=== PATIENT | male | born 1980 | race Caucasian/White ===

== ENCOUNTER 2018-07-15 11:34 | Inpatient (IN) | payer OTHER ==
[2018-07-15 11:59] VITALS: BMI 22.7
--- NOTE | 2018-07-15 14:04 | HP ---
COWS - Scale Resting Pulse: 0= [place] 80 or Below Sweatin= Chills/Flushing Restless Observation: 3= Extraneous Movement Pupil Size: 1= Pupils >than Normal Bone or Joint Aches: 2= Severe Diffuse Aches Runny Nose/ Eye Tearin= Runny Nose/Eyes GI Upset > 30mins: 3= Vomiting/Diarrhea Tremor Observation: 2= Slight Tremor Visible Yawning Observation: 2= >3x During Session Anxiety or Irritability: 2=Irritable/Anxious Goose Flesh Skin: 0=Smooth Skin COWS Score: 18 CIWA Score - Admission Criteria OASAS Guidelines: Admission for Medically Managed Detox: Requires at least one of the followin. CIWA greater than 12 2. Seizures within the past 24 hours 3. Delirium tremens within the past 24 hours 4. Hallucinations within the past 24 hours 5. Acute intervention needed for co occurring medical disorder 6. Acute intervention needed for co occurring psychiatric disorder 7. Severe withdrawal that cannot be handled at a lower level of care (continued vomiting, continued diarrhea, abnormal vital signs) requiring intravenous medication and/or fluids 8. Admission ROS S - HPI Chief Complaint: i need help to stop using heroin and cocaine Allergies/Adverse Reactions: Allergies Allergy/AdvReac Type Severity Reaction Status Date / Time No Known Allergies Allergy Verified 07/15/18 13:53 History of Present Illness: this 38 years old male with heroin and cocaine dependence seeking detox, withdrawal symptom,seeking detox,last detox 05/31 [facility] completed weight loss nicotine dependence longest period of sobriety 6 months plan for rehab after detox Exam Limitations: No Limitations - Ebola screening Have you traveled outside of the country in the last 21 days: No Have you had contact with anyone from an Ebola affected area: No Have you been sick,other than usual withdrawal symptoms: No Do you have a fever: No - Review of Systems Constitutional: Loss of Appetite, Malaise, Night Sweats, Changes in sleep, Weakness EENT: reports: Tearing, Nose Congestion Cardiac: reports: No Symptoms Reported GI: reports: Nausea, Vomiting, Abdominal cramping : reports: No Symptoms Reported Musculoskeletal: reports: Back Pain, Muscle Pain Integumentary: reports: Dryness Neuro: reports: Headache, Tremors Endocrine: reports: No Symptoms Reported Hematology: reports: No Symptoms Reported Psychiatric: reports: No Sypmtoms Reported, Judgement Intact, Mood/Affect Appropiate, Orientated x3 Patient History - Patient Medical History Hx Anemia: No Hx Asthma: No Hx Chronic Obstructive Pulmonary Disease (COPD): No Hx Cancer: No Hx Cardiac Disorders: No Hx Congestive Heart Failure: No Hx Hypertension: No Hx Hypercholesterolemia: No Hx Pacemaker: No HX Cerebrovascular Accident: No Hx Seizures: No Hx Dementia: No Hx Diabetes: No Hx Gastrointestinal Disorders: No Hx Liver Disease: No Hx Genitourinary Disorders: No Hx Sexually Transmitted Disorders: No Hx Renal Disease (ESRD): No Hx Thyroid Disease: No Hx Human Immunodeficiency Virus (HIV): No (last 2017) Hx Hepatitis C: No Hx Depression: No Hx Suicide Attempt: No Hx Bipolar Disorder: No Hx Schizophrenia: No Other Medical History: no suicidal,no homicidal - Patient Surgical History Past Surgical History: No - PPD History Previous Implant?: Yes Documented Results: Negative w/o proof Implanted On Prior [facility] Admission?: No PPD to be Administered?: Yes - Smoking Cessation Smoking history: Current every day smoker Have you smoked in the past 12 months: Yes Cigars Per Day: 20 Hx Chewing Tobacco Use: No Initiated information on smoking cessation: Yes 'Breaking Loose' booklet given: 07/15/18 - Substance & Tx. History Hx Alcohol Use: No Hx Substance Use: Yes Substance Use Type: Cocaine, Heroin Hx Substance Use Treatment: Yes ([facility]) - Substances Abused Heroin Route: Injection Frequency: Daily Amount used: 25 bags Age of first use: 34 Date of Last Use: 07/14/18 Cocaine Route: Injection Frequency: Daily Amount used: 1 gram Age of first use: 34 Date of Last Use: 07/14/18 Family Disease History - Family Disease History Family History: Denies Admission Physical Exam S - Vital Signs Vital Signs: Vital Signs - 24 hr 07/15/18 11:57 Temperature 95.8 F L Pulse Rate 70 Respiratory 18 Rate Blood Pressure 137/82 - Physical General Appearance: Yes: Moderate Distress, Tremorous, Irritable, Sweating, Anxious HEENTM: Yes: Normal ENT Inspection, JUSTICE, Pharynx Normal Respiratory: Yes: Within Normal Limits, Lungs Clear, Normal Breath Sounds Neck: Yes: Within Normal Limits Breast: Yes: Within Normal Limits Cardiology: Yes: Within Normal Limits, Regular Rhythm, Regular Rate, S1, S2 Abdominal: Yes: Within Normal Limits, Normal Bowel Sounds, Non Tender, Flat, Soft Genitourinary: Yes: Within Normal Limits Back: Yes: Muscle Spasm Musculoskeletal: Yes: full range of Motion, Back pain, Joint Stiffness, Muscle Pain Extremities: Yes: Tremors Neurological: Yes: Fully Oriented, Alert, Normal Mood/Affect Integumentary: Yes: Dry, Track Ortega Lymphatic: Yes: Within Normal Limits - Diagnostic (1) Opioid dependence with withdrawal Current Visit: Yes Status: Acute (2) Cocaine dependence Current Visit: Yes Status: Acute (3) IVDU (intravenous drug user) Current Visit: Yes Status: Acute (4) Nicotine dependence Current Visit: Yes Status: Acute (5) Weight loss Current Visit: Yes Status: Acute Cleared for Admission [facility] - Detox or Rehab [facility] Level of Care: Medically Managed Detox Regimen/Protocol: Methadone [facility] Breath Alcohol Content Breath Alcohol Content: 0 Urine Drug Screen - Results Drug Screen Negative: No Urine Drug Screen Results: KAMLESH-Cocaine, OPI-Opiates
[2018-07-15] MEDS ORDERED: IBUPROFEN 400 MG TABLET (FP) PO PRN (14:11)
[2018-07-15] MEDS ORDERED: MAGNESIUM CITRATE 300 ML BOTTLE PO PRN (14:11)
[2018-07-15] MEDS ORDERED: MAGNESIUM HYDROX 2400MG/30ML ORAL SUSPENSION 30 ML CUP PO PRN (14:11)
[2018-07-15] MEDS ORDERED: MENTHOL/PHENOL 1 EACH UD MM PRN (14:11)
[2018-07-15] MEDS ORDERED: LOPERAMIDE HCL 2 MG CAPSULE PO PRN (14:11)
[2018-07-15] MEDS ORDERED: guaiFENesin/D-METHORPHAN HB 10 ML UNIT-DOSE CUPS PO PRN (14:11)
[2018-07-15] MEDS ORDERED: ACETAMINOPHEN 325 MG TABLET (FP) PO PRN (14:11)
[2018-07-15] MEDS ORDERED: P-EPHED 60MG/TRIPROLIDI 2.5MG TABLET PO PRN (14:11)
[2018-07-15] MEDS ORDERED: METHADONE HCL 10 MG TABLET (FOR DETOX USE ONLY) PO ONE ×2 (15:45→23:00)
[2018-07-15] MEDS: diazePAM 5 MG TABLET PO PRN (15:48)
[2018-07-15] MEDS: CYCLOBENZAPRINE HCL 10 MG TABLET (FP) PO PRN (17:28)
[2018-07-15] MEDS ORDERED: MELATONIN 5 MG TABLETS PO PRN (22:00)
[2018-07-16] MEDS: cloNIDine HCL 0.1 MG TABLET PO SCH ×3 (00:24→22:47)
[2018-07-16] MEDS: THIAMINE HCL 100 MG TABLET (FP) PO SCH ×2 (00:26→22:47)
[2018-07-16] MEDS ORDERED: METHADONE HCL 10 MG TABLET (FOR DETOX USE ONLY) PO ONE (10:00)
[2018-07-16 10:35] LABS: HEMATOCRIT 35.7 % (35.4-49); HEMOGLOBIN 11.3 GM/dL (11.7-16.9); MCHC 31.7 g/dl (32.0-35.9); MEAN CELL VOLUME 60.6 fl (80-96); MEAN PLT VOLUME 8.8 fl (7.5-11.1); PLATELET COUNT 400 K/MM3 (134-434); RBC 5.89 M/mm3 (4.00-5.60); WHITE BLOOD COUNT 8.9 K/mm3 (4.0-10.0)
[2018-07-16 10:36] LABS: MCH 19.2 pg (25.7-33.7)
[2018-07-16 10:57] LABS: ALK PHOS 120 U/L (45-117); ANION GAP 8 MMOL/L (8-16); BILIRUBIN,TOTAL 0.4 mg/dL (0.2-1); BLOOD UREA NITROGEN 15 mg/dL (7-18); CALCIUM 8.7 mg/dL (8.5-10.1); CHLORIDE 108 mmol/L (98-107); CO2 25 mmol/L (21-32); CREATININE 0.7 mg/dL (0.55-1.3); GLUCOSE,RANDOM 99 mg/dL (74-106); POTASSIUM 4.1 mmol/L (3.5-5.1); SGOT/AST 308 U/L (15-37); SGPT/ALT 416 U/L (13-61); SODIUM 141 mmol/L (136-145); TOT PROT 6.4 g/dl (6.4-8.2)
--- NOTE | 2018-07-16 11:33 | PN ---
BHS COWS - Scale Resting Pulse: 0= [place] 80 or Below Sweatin=Flushed/Facial Moisture Restless Observation: 1= Difficult to Sit Still Pupil Size: 0= Normal to Room Light Bone or Joint Aches: 2= Severe Diffuse Aches Runny Nose/ Eye Tearin= Nasal Congestion GI Upset > 30mins: 3= Vomiting/Diarrhea Tremor Observation of Outstretched Hands: 2= Slight Tremor Visible Yawning Observation: 1= 1-2x During Session Anxiety or Irritability: 1=Feels Anxious/Irritable Goose Flesh Skin: 0=Smooth Skin COWS Score: 13 BHS Progress Note (SOAP) Subjective: Malaise, weak, generalized pain, tremors, sweats Objective: 07/16/18 11:31 Vital Signs 07/16/18 07/16/18 06:42 09:19 Temperature 97.9 F 97.0 F L Pulse Rate 55 L 81 Respiratory 18 18 Rate Blood Pressure 133/93 127/81 Laboratory Last Values WBC 8.9 K/mm3 (4.0-10.0) 07/16/18 08:00 RBC 5.89 M/mm3 (4.00-5.60) H 07/16/18 08:00 Hgb 11.3 GM/dL (11.7-16.9) L 07/16/18 08:00 Hct 35.7 % (35.4-49) 07/16/18 08:00 MCV 60.6 fl (80-96) L 07/16/18 08:00 MCH 19.2 pg (25.7-33.7) L 07/16/18 08:00 MCHC 31.7 g/dl (32.0-35.9) L 07/16/18 08:00 RDW 17.0 % (11.9-15.9) H 07/16/18 08:00 Plt Count 400 K/MM3 (134-434) 07/16/18 08:00 MPV 8.8 fl (7.5-11.1) 07/16/18 08:00 Sodium 141 mmol/L (136-145) 07/16/18 08:00 Potassium 4.1 mmol/L (3.5-5.1) 07/16/18 08:00 Chloride 108 mmol/L (98-107) H 07/16/18 08:00 Carbon Dioxide 25 mmol/L (21-32) 07/16/18 08:00 Anion Gap 8 MMOL/L (8-16) 07/16/18 08:00 BUN 15 mg/dL (7-18) 07/16/18 08:00 Creatinine 0.7 mg/dL (0.55-1.3) 07/16/18 08:00 Creat Clearance w eGFR > 60 (>60) 07/16/18 08:00 Random Glucose 99 mg/dL (74-106) 07/16/18 08:00 Calcium 8.7 mg/dL (8.5-10.1) 07/16/18 08:00 Total Bilirubin 0.4 mg/dL (0.2-1) 07/16/18 08:00 AST 308 U/L (15-37) H 07/16/18 08:00 ALT 416 U/L (13-61) H 07/16/18 08:00 Alkaline Phosphatase 120 U/L (45-117) H 07/16/18 08:00 Total Protein 6.4 g/dl (6.4-8.2) 07/16/18 08:00 Albumin 3.0 g/dl (3.4-5.0) L 07/16/18 08:00 Labs noted-Elevated liver enzymes Assessment: 07/16/18 11:32 Withdrawal sx Plan: Continue detox Discontinue tylenol Encourage oral fluid intake
[2018-07-16] MEDS: diazePAM 5 MG TABLET PO PRN ×2 (13:39→22:47)
[2018-07-16] MEDS: PRENATAL VITAMINS W/ FOLIC ACID TABLET (FP) PO SCH (13:39)
--- NOTE | 2018-07-16 16:53 | EKG ---
Test Reason : Blood Pressure : / mmHG Vent. Rate : 068 BPM Atrial Rate : 068 BPM P-R Int : 128 ms QRS Dur : 096 ms QT Int : 426 ms P-R-T Axes : 059 066 053 degrees QTc Int : 452 ms NORMAL SINUS RHYTHM NORMAL ECG NO PREVIOUS ECGS AVAILABLE Confirmed by Zeinab Abreu ([id number]) on 07/16/2018 4:53:17 PM Referred By: Confirmed By:Zeinab Abreu
[2018-07-17] MEDS ORDERED: METHADONE HCL 5 MG TABLET (FOR DETOX USE ONLY) PO ONE (10:00)
[2018-07-17] MEDS: PRENATAL VITAMINS W/ FOLIC ACID TABLET (FP) PO SCH (10:15)
[2018-07-17] MEDS: diazePAM 5 MG TABLET PO PRN ×2 (10:15→22:35)
[2018-07-17] MEDS: cloNIDine HCL 0.1 MG TABLET PO SCH ×2 (10:15→22:33)
[2018-07-17] MEDS: CYCLOBENZAPRINE HCL 10 MG TABLET (FP) PO PRN ×2 (10:15→22:33)
--- NOTE | 2018-07-17 15:01 | PN ---
BHS COWS - Scale Resting Pulse: 1= [place] 81-100 Sweatin= No chills or Flushing Restless Observation: 0= Sits Still Pupil Size: 0= Normal to Room Light Bone or Joint Aches: 0= None Runny Nose/ Eye Tearin= None GI Upset > 30mins: 0= None Tremor Observation of Outstretched Hands: 0= None Yawning Observation: 0= None Anxiety or Irritability: 0= None Goose Flesh Skin: 0=Smooth Skin COWS Score: 1 BHS Progress Note (SOAP) Subjective: pt without complaints, resting in bed O: Vital Signs - 24 hr 07/16/18 07/16/18 07/17/18 17:31 22:11 00:30 Temperature 98.1 F 96.8 F L Pulse Rate 67 79 Respiratory 19 16 18 Rate Blood Pressure 127/71 120/69 07/17/18 07/17/18 07/17/18 03:30 06:55 09:23 Temperature 97.3 F L 98.1 F Pulse Rate 58 L 86 Respiratory 18 18 16 Rate Blood Pressure 118/69 122/71 07/17/18 13:51 Temperature 98.1 F Pulse Rate 79 Respiratory 16 Rate Blood Pressure 131/68 Laboratory Tests 07/16/18 07/16/18 07/16/18 08:00 08:00 08:00 WBC 8.9 RBC 5.89 H Hgb 11.3 L Hct 35.7 MCV 60.6 L MCH 19.2 L MCHC 31.7 L RDW 17.0 H Plt Count 400 MPV 8.8 Sodium 141 Potassium 4.1 Chloride 108 H Carbon Dioxide 25 Anion Gap 8 BUN 15 Creatinine 0.7 Creat Clearance w eGFR > 60 Random Glucose 99 Calcium 8.7 Total Bilirubin 0.4 AST 308 H ALT 416 H Alkaline Phosphatase 120 H Total Protein 6.4 Albumin 3.0 L RPR Titer HIV 1&2 Antibody Screen Negative HIV P24 Antigen Negative 07/16/18 08:00 WBC RBC Hgb Hct MCV MCH MCHC RDW Plt Count MPV Sodium Potassium Chloride Carbon Dioxide Anion Gap BUN Creatinine Creat Clearance w eGFR Random Glucose Calcium Total Bilirubin AST ALT Alkaline Phosphatase Total Protein Albumin RPR Titer Nonreactive HIV 1&2 Antibody Screen HIV P24 Antigen i PE: no focal signs, no liver tenderness ncreased liver enzymes mild anemia, low MCV, low RBC, high RDW a/p: continue heroin detox protocol repeat CMP tomorrow
[2018-07-17] MEDS: hydrOXYzine PAMOATE 50 MG CAPSULE (FP) PO PRN (20:00)
[2018-07-17] MEDS: THIAMINE HCL 100 MG TABLET (FP) PO SCH (22:32)
[2018-07-18] MEDS: MAG HYDROX/AL HYDROX/SIMETH 30 ML UNIT-DOSE CUP PO PRN ×2 (02:50→18:57)
[2018-07-18] MEDS ORDERED: METHADONE HCL 5 MG TABLET (FOR DETOX USE ONLY) PO ONE (10:00)
[2018-07-18 10:26] LABS: ALK PHOS 135 U/L (45-117); ANION GAP 5 MMOL/L (8-16); BILIRUBIN,TOTAL 0.2 mg/dL (0.2-1); BLOOD UREA NITROGEN 19 mg/dL (7-18); CALCIUM 8.7 mg/dL (8.5-10.1); CHLORIDE 108 mmol/L (98-107); CO2 26 mmol/L (21-32); CREATININE 0.8 mg/dL (0.55-1.3); GLUCOSE,RANDOM 90 mg/dL (74-106); POTASSIUM 4.4 mmol/L (3.5-5.1); SGOT/AST 429 U/L (15-37); SGPT/ALT 548 U/L (13-61); SODIUM 139 mmol/L (136-145); TOT PROT 6.1 g/dl (6.4-8.2)
[2018-07-18] MEDS: PRENATAL VITAMINS W/ FOLIC ACID TABLET (FP) PO SCH (10:42)
[2018-07-18] MEDS: cloNIDine HCL 0.1 MG TABLET PO SCH ×2 (10:43→22:29)
[2018-07-18] MEDS: diazePAM 5 MG TABLET PO PRN (10:43)
[2018-07-18] MEDS: CYCLOBENZAPRINE HCL 10 MG TABLET (FP) PO PRN ×2 (10:45→16:43)
--- NOTE | 2018-07-18 13:32 | PN ---
BHS Progress Note (SOAP) Subjective: Fatigue, Interrupted Sleep. Objective: PATIENT A & O X 3. IN NO ACUTE DISTRESS. 07/18/18 13:32 Vital Signs Temperature 98.3 F 07/18/18 13:11 Pulse Rate 77 07/18/18 13:11 Respiratory Rate 18 07/18/18 13:11 Blood Pressure 103/54 L 07/18/18 13:11 O2 Sat by Pulse Oximetry (%) Laboratory Tests 07/16/18 07/16/18 07/16/18 08:00 08:00 08:00 WBC 8.9 RBC 5.89 H Hgb 11.3 L Hct 35.7 MCV 60.6 L MCH 19.2 L MCHC 31.7 L RDW 17.0 H Plt Count 400 MPV 8.8 Sodium 141 Potassium 4.1 Chloride 108 H Carbon Dioxide 25 Anion Gap 8 BUN 15 Creatinine 0.7 Creat Clearance w eGFR > 60 Random Glucose 99 Calcium 8.7 Total Bilirubin 0.4 AST 308 H ALT 416 H Alkaline Phosphatase 120 H Total Protein 6.4 Albumin 3.0 L RPR Titer HIV 1&2 Antibody Screen Negative HIV P24 Antigen Negative 07/16/18 07/18/18 08:00 07:00 WBC RBC Hgb Hct MCV MCH MCHC RDW Plt Count MPV Sodium 139 Potassium 4.4 Chloride 108 H Carbon Dioxide 26 Anion Gap 5 L BUN 19 H Creatinine 0.8 Creat Clearance w eGFR > 60 Random Glucose 90 Calcium 8.7 Total Bilirubin 0.2 AST 429 H ALT 548 H Alkaline Phosphatase 135 H Total Protein 6.1 L Albumin 3.0 L RPR Titer Nonreactive HIV 1&2 Antibody Screen HIV P24 Antigen LABS NOTED. Assessment: 07/18/18 13:34 WITHDRAWAL SYMPTOMS. ELEVATED LIVER ENZYMES. 07/18/18 13:35 Plan: CONTINUE DETOX. INCREASE DAILY PO FLUID INTAKE.
[2018-07-18] MEDS: hydrOXYzine PAMOATE 50 MG CAPSULE (FP) PO PRN ×2 (15:13→22:29)
[2018-07-18] MEDS: THIAMINE HCL 100 MG TABLET (FP) PO SCH (22:29)
[2018-07-19 09:17] VITALS: TEMP 97
[2018-07-19] MEDS ORDERED: METHADONE HCL 10 MG TABLET (FOR DETOX USE ONLY) PO ONE (10:00)
--- NOTE | 2018-07-19 10:05 | PN ---
S Progress Note (SOAP) Subjective: alert,irritable,anxious,interrupted sleep,pain in the body and back Objective: 07/19/18 09:55 Vital Signs Temperature 97.0 F L 07/19/18 09:17 Pulse Rate 104 H 07/19/18 09:17 Respiratory Rate 18 07/19/18 09:17 Blood Pressure 115/61 07/19/18 09:17 O2 Sat by Pulse Oximetry (%) 07/19/18 09:55 Laboratory Last Values WBC 8.9 K/mm3 (4.0-10.0) 07/16/18 08:00 RBC 5.89 M/mm3 (4.00-5.60) H 07/16/18 08:00 Hgb 11.3 GM/dL (11.7-16.9) L 07/16/18 08:00 Hct 35.7 % (35.4-49) 07/16/18 08:00 MCV 60.6 fl (80-96) L 07/16/18 08:00 MCH 19.2 pg (25.7-33.7) L 07/16/18 08:00 MCHC 31.7 g/dl (32.0-35.9) L 07/16/18 08:00 RDW 17.0 % (11.9-15.9) H 07/16/18 08:00 Plt Count 400 K/MM3 (134-434) 07/16/18 08:00 MPV 8.8 fl (7.5-11.1) 07/16/18 08:00 Sodium 139 mmol/L (136-145) 07/18/18 07:00 Potassium 4.4 mmol/L (3.5-5.1) 07/18/18 07:00 Chloride 108 mmol/L (98-107) H 07/18/18 07:00 Carbon Dioxide 26 mmol/L (21-32) 07/18/18 07:00 Anion Gap 5 MMOL/L (8-16) L 07/18/18 07:00 BUN 19 mg/dL (7-18) H 07/18/18 07:00 Creatinine 0.8 mg/dL (0.55-1.3) 07/18/18 07:00 Creat Clearance w eGFR > 60 (>60) 07/18/18 07:00 Random Glucose 90 mg/dL (74-106) 07/18/18 07:00 Calcium 8.7 mg/dL (8.5-10.1) 07/18/18 07:00 Total Bilirubin 0.2 mg/dL (0.2-1) 07/18/18 07:00 AST 429 U/L (15-37) H 07/18/18 07:00 ALT 548 U/L (13-61) H 07/18/18 07:00 Alkaline Phosphatase 135 U/L (45-117) H 07/18/18 07:00 Total Protein 6.1 g/dl (6.4-8.2) L 07/18/18 07:00 Albumin 3.0 g/dl (3.4-5.0) L 07/18/18 07:00 RPR Titer Nonreactive (NONREACTIVE) 07/16/18 08:00 HIV 1&2 Antibody Screen Negative 07/16/18 08:00 HIV P24 Antigen Negative 07/16/18 08:00 Assessment: 07/19/18 09:59 withdrawal symptom Plan: continue detox,elevation of alt,ast,d/c tylenol
--- NOTE | 2018-07-19 10:18 | PN ---
ADIEL Progress Note Note: address with patient abnormal liver function tests,patient had medical provider in [place] ,advise follow up with PMD for evaluation and follow up liver function test,possible evaluation by liver specialist,patient understood, no tylenol,follow up with after care program as arrangement rehab,discharge in am
[2018-07-19] MEDS: cloNIDine HCL 0.1 MG TABLET PO SCH (10:36)
[2018-07-19] MEDS: PRENATAL VITAMINS W/ FOLIC ACID TABLET (FP) PO SCH (10:36)
[2018-07-19 14:13] VITALS: BP 123/67; PULSE 91
[2018-07-19] MEDS: CYCLOBENZAPRINE HCL 10 MG TABLET (FP) PO PRN (16:19)
[2018-07-20] MEDS ORDERED: METHADONE HCL 5 MG TABLET (FOR DETOX USE ONLY) PO ONE (06:00)
== END 2018-07-19 17:53 | disposition left against medical advice (07) | DRG 770 ==
LOC: YASAS 11:34 → Y6N 14:17
PROVIDERS: ADMIT Neuromusculoskeletal Medicine & OMM; ATTEND Neuromusculoskeletal Medicine & OMM
PROC: HZ2ZZZZ Detoxification Services for Substance Abuse Treatment (ICD-10-PCS; principal; 2018-07-15)
DX: F11.23 Opioid dependence with withdrawal (principal); F14.20 Cocaine dependence, uncomplicated; F17.210 Nicotine dependence, cigarettes, uncomplicated; R94.5 Abnormal results of liver function studies
CPT/HCPCS: 36415; 80053; 85027; 86593; 87389; 93005; 93010; J0735

== ENCOUNTER 2018-08-31 10:26 | Inpatient (IN) | payer OTHER ==
[2018-08-31 10:56] VITALS: BMI 22.3
--- NOTE | 2018-08-31 13:13 | HP ---
COWS - Scale Resting Pulse: 1= [place] 81-100 Sweatin= Chills/Flushing Restless Observation: 3= Extraneous Movement Pupil Size: 1= Pupils >than Normal Bone or Joint Aches: 2= Severe Diffuse Aches Runny Nose/ Eye Tearin= Runny Nose/Eyes GI Upset > 30mins: 2= Nausea/Diarrhea Tremor Observation: 2= Slight Tremor Visible Yawning Observation: 1= 1-2x During Session Anxiety or Irritability: 2=Irritable/Anxious Goose Flesh Skin: 0=Smooth Skin COWS Score: 17 CIWA Score - Admission Criteria OASAS Guidelines: Admission for Medically Managed Detox: Requires at least one of the followin. CIWA greater than 12 2. Seizures within the past 24 hours 3. Delirium tremens within the past 24 hours 4. Hallucinations within the past 24 hours 5. Acute intervention needed for co occurring medical disorder 6. Acute intervention needed for co occurring psychiatric disorder 7. Severe withdrawal that cannot be handled at a lower level of care (continued vomiting, continued diarrhea, abnormal vital signs) requiring intravenous medication and/or fluids 8. Admission ROS [facility] Chief Complaint: i need help to stop using heroin,cocaine Allergies/Adverse Reactions: Allergies Allergy/AdvReac Type Severity Reaction Status Date / Time No Known Allergies Allergy Verified 08/31/18 11:18 History of Present Illness: this 38 years old male with heroin and cocaine dependence,withdrawal symptom, requested detox, multiple admissions in detox,last detox 07/15/18 to 07/19/18 keep relapsing nicotine dependence 1 pack/day, weight loss longest period of sobriety 7 months Exam Limitations: No Limitations - Ebola screening Have you traveled outside of the country in the last 21 days: No Have you had contact with anyone from an Ebola affected area: No Have you been sick,other than usual withdrawal symptoms: No Do you have a fever: No - Review of Systems Constitutional: Chills, Loss of Appetite, Malaise, Night Sweats, Changes in sleep, Weakness, Unintentional Wgt. Loss EENT: reports: Tearing, Nose Congestion Respiratory: reports: No Symptoms reported Cardiac: reports: No Symptoms Reported GI: reports: Nausea, Poor Appetite, Abdominal cramping : reports: No Symptoms Reported Musculoskeletal: reports: Back Pain, Joint Pain, Muscle Pain, Joint Stiffness Integumentary: reports: Dryness Neuro: reports: Headache, Tremors Endocrine: reports: No Symptoms Reported Hematology: reports: No Symptoms Reported Psychiatric: reports: No Sypmtoms Reported, Judgement Intact, Mood/Affect Appropiate, Orientated x3, other Other Systems: Reviewed and Negative Patient History - Patient Medical History Hx Anemia: No Hx Asthma: No Hx Chronic Obstructive Pulmonary Disease (COPD): No Hx Cancer: No Hx Cardiac Disorders: No Hx Congestive Heart Failure: No Hx Hypertension: No Hx Hypercholesterolemia: No Hx Pacemaker: No HX Cerebrovascular Accident: No Hx Seizures: No Hx Dementia: No Hx Diabetes: No Hx Gastrointestinal Disorders: No Hx Liver Disease: No Hx Genitourinary Disorders: No Hx Sexually Transmitted Disorders: No Hx Renal Disease (ESRD): No Hx Thyroid Disease: No Hx Human Immunodeficiency Virus (HIV): No (last 07/15/18 negative) Hx Hepatitis C: No Hx Depression: No Hx Suicide Attempt: No Hx Bipolar Disorder: No Hx Schizophrenia: No Other Medical History: no sucidal,no homicidal - Patient Surgical History Past Surgical History: No - PPD History Previous Implant?: Yes Documented Results: Negative w/proof Implanted On Prior [facility] Admission?: Yes Date: 07/17/18 Results: 0 mm PPD to be Administered?: Yes - Smoking Cessation Smoking history: Current every day smoker Have you smoked in the past 12 months: Yes Aproximately how many cigarettes per day: 20 Cigars Per Day: 20 Hx Chewing Tobacco Use: No Initiated information on smoking cessation: Yes 'Breaking Loose' booklet given: 08/31/18 - Substance & Tx. History Hx Alcohol Use: No Hx Substance Use: Yes Substance Use Type: Cocaine, Heroin Hx Substance Use Treatment: Yes ([facility] 07/15/18 to 07/19/18 ) - Substances Abused Heroin Route: Injection Frequency: Daily Amount used: 25 bags Age of first use: 34 Date of Last Use: 08/31/18 Cocaine Route: Injection Frequency: Daily Amount used: $40 Age of first use: 36 Date of Last Use: 08/30/18 Family Disease History - Family Disease History Family History: Denies Admission Physical Exam BHS - Vital Signs Vital Signs: Vital Signs - 24 hr 08/31/18 10:55 Temperature 97.4 F L Pulse Rate 94 H Respiratory 20 Rate Blood Pressure 124/74 - Physical General Appearance: Yes: Moderate Distress, Tremorous, Irritable, Sweating, Anxious HEENTM: Yes: Normal ENT Inspection, JUSTICE, Pharynx Normal Respiratory: Yes: Lungs Clear, Normal Breath Sounds, No Respiratory Distress Neck: Yes: Within Normal Limits, Supple, Trachea in good position Breast: Yes: Within Normal Limits Cardiology: Yes: Within Normal Limits, Regular Rhythm, Regular Rate, S1, S2 Abdominal: Yes: Within Normal Limits, Normal Bowel Sounds, Non Tender, Flat, Soft Genitourinary: Yes: Within Normal Limits Back: Yes: Within Normal Limits, Normal Inspection, Muscle Spasm Musculoskeletal: Yes: Back pain, Joint Stiffness, Muscle Pain Extremities: Yes: Within Normal Limits, Normal Range of Motion, Tremors Neurological: Yes: manager package II-XII NML intact, Fully Oriented, Alert, Motor Strength 5/5 Integumentary: Yes: Dry Lymphatic: Yes: Within Normal Limits - Diagnostic (1) Opioid dependence with withdrawal Current Visit: No Status: Acute (2) Cocaine dependence Current Visit: No Status: Acute Qualifiers: Substance use status: uncomplicated Qualified Code(s): F14.20 - Cocaine dependence, uncomplicated (3) IVDU (intravenous drug user) Current Visit: No Status: Acute (4) Nicotine dependence Current Visit: No Status: Acute Qualifiers: Nicotine product type: cigarettes Substance use status: uncomplicated Qualified Code(s): F17.210 - Nicotine dependence, cigarettes, uncomplicated (5) Weight loss Current Visit: No Status: Acute (6) Weight loss Current Visit: Yes Status: Acute Cleared for Admission S - Detox or Rehab [facility] Level of Care: Medically Managed Detox Regimen/Protocol: Methadone S Breath Alcohol Content Breath Alcohol Content: 0 Urine Drug Screen - Results Drug Screen Negative: No Urine Drug Screen Results: KAMLESH-Cocaine, OPI-Opiates, FEN-Fentanyl Inpatient Rehab Admission - Rehab Decision to Admit Inpatient rehab admission?: No
[2018-08-31] MEDS ORDERED: MAGNESIUM HYDROX 2400MG/30ML ORAL SUSPENSION 30 ML CUP PO PRN (13:46)
[2018-08-31] MEDS ORDERED: BISMUTH SUBSALICYLATE 524 MG/30 ML UD PO PRN (13:46)
[2018-08-31] MEDS ORDERED: MENTHOL/PHENOL 1 EACH UD MM PRN (13:46)
[2018-08-31] MEDS ORDERED: MAGNESIUM CITRATE 300 ML BOTTLE PO PRN (13:46)
[2018-08-31] MEDS ORDERED: hydrOXYzine PAMOATE 25 MG CAPSULE (FP) PO PRN (13:46)
[2018-08-31] MEDS ORDERED: IBUPROFEN 400 MG TABLET (FP) PO PRN (13:46)
[2018-08-31] MEDS ORDERED: ACETAMINOPHEN 325 MG TABLET (FP) PO PRN ×2 (13:46)
[2018-08-31] MEDS ORDERED: METHADONE HCL 10 MG TABLET (FOR DETOX USE ONLY) PO ONE ×2 (15:00→23:00)
[2018-08-31] MEDS: diazePAM 5 MG TABLET PO PRN ×2 (16:32→22:12)
[2018-08-31] MEDS: cloNIDine HCL 0.1 MG TABLET PO PRN (19:09)
[2018-08-31] MEDS: METHOCARBAMOL 500 MG TABLET PO PRN (19:10)
[2018-08-31] MEDS: MAG HYDROX/AL HYDROX/SIMETH 30 ML UNIT-DOSE CUP PO PRN (20:24)
[2018-08-31] MEDS: THIAMINE HCL 100 MG TABLET (FP) PO SCH (22:10)
[2018-08-31 23:10] LABS: EPI CELLS 2.9 /HPF (FEW); HYALINE CASTS 55 /hpf (NEGATIVE); PH,URINE 5.5 (5.0-8.0); URINE APPEARANCE TURBID; URINE BACTERIA 1.008 /hpf (NEGATIVE); URINE BILIRUBIN 1+ (<2.0 mg/dL); URINE COLOR DK YELLOW; URINE GLUCOSE (UA) NEGATIVE (NEGATIVE); URINE KETONE TRACE (NEGATIVE); URINE LEUK ESTERASE NEGATIVE (NEGATIVE); URINE NITRITE NEGATIVE (NEGATIVE); URINE PROTEIN 1+ (NEGATIVE); URINE WBC 2 /hpf (3-5)
[2018-09-01 01:55] LABS: URINE RBC NONE SEEN /hpf (0-3)
[2018-09-01] MEDS: diazePAM 5 MG TABLET PO PRN ×3 (09:05→18:39)
[2018-09-01] MEDS ORDERED: METHADONE HCL 10 MG TABLET (FOR DETOX USE ONLY) PO ONE (10:00)
[2018-09-01] MEDS: PRENATAL VITAMINS W/ FOLIC ACID TABLET (FP) PO SCH (10:04)
[2018-09-01] MEDS: METHOCARBAMOL 500 MG TABLET PO PRN (10:05)
--- NOTE | 2018-09-01 11:04 | PN ---
BHS COWS - Scale Resting Pulse: 0= [place] 80 or Below Sweatin= Chills/Flushing Restless Observation: 0= Sits Still Pupil Size: 1= Pupils >than Normal Bone or Joint Aches: 2= Severe Diffuse Aches Runny Nose/ Eye Tearin= Nasal Congestion GI Upset > 30mins: 2= Nausea/Diarrhea Tremor Observation of Outstretched Hands: 2= Slight Tremor Visible Yawning Observation: 2= >3x During Session Anxiety or Irritability: 2=Irritable/Anxious Goose Flesh Skin: 0=Smooth Skin COWS Score: 13 BHS Progress Note (SOAP) Subjective: body aches took methadone a little while ago prefer resting on bed Objective: 09/01/18 11:05 Vital Signs Temperature 97.8 F 09/01/18 09:24 Pulse Rate 65 09/01/18 09:24 Respiratory Rate 20 09/01/18 09:24 Blood Pressure 113/60 09/01/18 09:24 O2 Sat by Pulse Oximetry (%) Laboratory Last Values Urine Color Dk yellow 08/31/18 18:35 Urine Appearance Turbid 08/31/18 18:35 Urine pH 5.5 (5.0-8.0) 08/31/18 18:35 Ur Specific [place] 1.027 (1.010-1.035) 08/31/18 18:35 Urine Protein 1+ (NEGATIVE) 08/31/18 18:35 Urine Glucose (UA) Negative (NEGATIVE) 08/31/18 18:35 Urine Ketones Trace (NEGATIVE) H 08/31/18 18:35 Urine Blood Negative (NEGATIVE) 08/31/18 18:35 Urine Nitrite Negative (NEGATIVE) 08/31/18 18:35 Urine Bilirubin 1+ (<2.0 mg/dL) H 08/31/18 18:35 Urine Urobilinogen 1.0 mg/dL (0.2-1.0) 08/31/18 18:35 Ur Leukocyte Esterase Negative (NEGATIVE) 08/31/18 18:35 Urine WBC (Auto) 2 /hpf (3-5) 08/31/18 18:35 Urine RBC (Auto) None seen /hpf (0-3) 08/31/18 18:35 Urine Casts (Auto) 55 /hpf (NEGATIVE) 08/31/18 18:35 U Epithel Cells (Auto) 2.9 /HPF (FEW) 08/31/18 18:35 Urine Bacteria (Auto) 1.008 /hpf (NEGATIVE) 08/31/18 18:35 lab noted blood work pending 09/01/18 11:06 Assessment: 09/01/18 11:07 opiate withdrawal sx Plan: continue detox
[2018-09-01 11:13] LABS: HEMATOCRIT 34.3 % (35.4-49); MEAN CELL VOLUME 61.7 fl (80-96); MEAN PLT VOLUME 9.2 fl (7.5-11.1); PLATELET COUNT 360 K/MM3 (134-434); RBC 5.55 M/mm3 (4.00-5.60); RDW 17.4 % (11.9-15.9); WHITE BLOOD COUNT 10.8 K/mm3 (4.0-10.0)
[2018-09-01 11:24] LABS: MCH 19.8 pg (25.7-33.7)
[2018-09-01 11:37] LABS: ALBUMIN 3.8 g/dl (3.4-5.0); ALK PHOS 72 U/L (45-117); ANION GAP 8 MMOL/L (8-16); BILIRUBIN,TOTAL 0.3 mg/dL (0.2-1); BLOOD UREA NITROGEN 19 mg/dL (7-18); CALCIUM 8.9 mg/dL (8.5-10.1); CHLORIDE 106 mmol/L (98-107); CO2 27 mmol/L (21-32); CREATININE 1.2 mg/dL (0.55-1.3); GLUCOSE,RANDOM 95 mg/dL (74-106); POTASSIUM 3.5 mmol/L (3.5-5.1); SGOT/AST 27 U/L (15-37); SGPT/ALT 69 U/L (13-61); SODIUM 141 mmol/L (136-145); TOT PROT 7.3 g/dl (6.4-8.2)
[2018-09-01] MEDS: cloNIDine HCL 0.1 MG TABLET PO PRN (18:39)
[2018-09-01] MEDS: THIAMINE HCL 100 MG TABLET (FP) PO SCH (22:10)
[2018-09-01] MEDS: MELATONIN 5 MG TABLETS PO PRN (22:11)
[2018-09-01] MEDS: MAG HYDROX/AL HYDROX/SIMETH 30 ML UNIT-DOSE CUP PO PRN (22:11)
[2018-09-02] MEDS ORDERED: METHADONE HCL 10 MG TABLET (FOR DETOX USE ONLY) PO ONE (10:00)
[2018-09-02] MEDS: PRENATAL VITAMINS W/ FOLIC ACID TABLET (FP) PO SCH (10:04)
[2018-09-02] MEDS: METHOCARBAMOL 500 MG TABLET PO PRN ×2 (10:06→17:29)
[2018-09-02] MEDS: diazePAM 5 MG TABLET PO PRN ×3 (10:06→22:26)
[2018-09-02] MEDS ORDERED: FERROUS SO4 325 MG TABLET (FP) PO ONE (11:30)
--- NOTE | 2018-09-02 15:16 | PN ---
BHS COWS - Scale Resting Pulse: 0= NV 80 or Below Sweatin= Chills/Flushing Restless Observation: 1= Difficult to Sit Still Pupil Size: 0= Normal to Room Light Bone or Joint Aches: 2= Severe Diffuse Aches Runny Nose/ Eye Tearin= Nasal Congestion GI Upset > 30mins: 0= None Tremor Observation of Outstretched Hands: 0= None Yawning Observation: 1= 1-2x During Session Anxiety or Irritability: 2=Irritable/Anxious Goose Flesh Skin: 0=Smooth Skin COWS Score: 8 BHS Progress Note (SOAP) Subjective: Body Aches, Anxious, Sweating. Objective: PATIENT A & O X 3, OBSERVED AMBULATING ON UNIT. IN NO ACUTE DISTRESS. 09/02/18 15:18 Vital Signs Temperature 98.9 F 09/02/18 13:41 Pulse Rate 69 09/02/18 13:41 Respiratory Rate 16 09/02/18 13:41 Blood Pressure 125/77 09/02/18 13:41 O2 Sat by Pulse Oximetry (%) Laboratory Tests 08/31/18 09/01/18 09/01/18 18:35 06:30 06:30 WBC RBC Hgb Hct MCV MCH MCHC RDW Plt Count MPV Sodium 141 Potassium 3.5 Chloride 106 Carbon Dioxide 27 Anion Gap 8 BUN 19 H Creatinine 1.2 Creat Clearance w eGFR 68.13 Random Glucose 95 Calcium 8.9 Total Bilirubin 0.3 AST 27 ALT 69 H Alkaline Phosphatase 72 Total Protein 7.3 Albumin 3.8 Urine Color Dk yellow Urine Appearance Turbid Urine pH 5.5 Ur Specific [place] 1.027 Urine Protein 1+ Urine Glucose (UA) Negative Urine Ketones Trace H Urine Blood Negative Urine Nitrite Negative Urine Bilirubin 1+ H Urine Urobilinogen 1.0 Ur Leukocyte Esterase Negative Urine WBC (Auto) 2 Urine RBC (Auto) None seen Urine Casts (Auto) 55 U Epithel Cells (Auto) 2.9 Urine Bacteria (Auto) 1.008 RPR Titer Nonreactive 09/01/18 09:00 WBC 10.8 H RBC 5.55 Hgb 11.0 L Hct 34.3 L MCV 61.7 L MCH 19.8 L MCHC 32.0 RDW 17.4 H Plt Count 360 MPV 9.2 Sodium Potassium Chloride Carbon Dioxide Anion Gap BUN Creatinine Creat Clearance w eGFR Random Glucose Calcium Total Bilirubin AST ALT Alkaline Phosphatase Total Protein Albumin Urine Color Urine Appearance Urine pH Ur Specific [place] Urine Protein Urine Glucose (UA) Urine Ketones Urine Blood Urine Nitrite Urine Bilirubin Urine Urobilinogen Ur Leukocyte Esterase Urine WBC (Auto) Urine RBC (Auto) Urine Casts (Auto) U Epithel Cells (Auto) Urine Bacteria (Auto) RPR Titer LABS NOTED. Assessment: 09/02/18 15:18 WITHDRAWAL SYMPTOMS. ANEMIA (MICROCYTIC). LEUKOCYSTOSIS. 09/02/18 15:19 Plan: CONTINUE DETOX. FEOSOL, 325 MG PO BIDCM. REPEAT CBC TOMORROW AM FOR ADMISSION ABNORMALITIES.
[2018-09-02] MEDS: cloNIDine HCL 0.1 MG TABLET PO PRN (17:29)
[2018-09-02] MEDS: FERROUS SO4 325 MG TABLET (FP) PO SCH (17:29)
[2018-09-02] MEDS: MELATONIN 5 MG TABLETS PO PRN (22:26)
[2018-09-02] MEDS: THIAMINE HCL 100 MG TABLET (FP) PO SCH (22:26)
[2018-09-03] MEDS: FERROUS SO4 325 MG TABLET (FP) PO SCH ×2 (09:19→17:54)
[2018-09-03] MEDS ORDERED: METHADONE HCL 10 MG TABLET (FOR DETOX USE ONLY) PO ONE (10:00)
[2018-09-03] MEDS: diazePAM 5 MG TABLET PO PRN (10:19)
[2018-09-03] MEDS: PRENATAL VITAMINS W/ FOLIC ACID TABLET (FP) PO SCH (10:19)
[2018-09-03] MEDS: METHOCARBAMOL 500 MG TABLET PO PRN (10:19)
[2018-09-03 11:13] LABS: BASO % 1.2 % (0-2.0); EOS % 1.6 % (0-4.5); HEMATOCRIT 35.7 % (35.4-49); HEMOGLOBIN 11.4 GM/dL (11.7-16.9); LYMPH % 32.1 % (8-40); MCHC 31.9 g/dl (32.0-35.9); MEAN CELL VOLUME 61.6 fl (80-96); MEAN PLT VOLUME 9.1 fl (7.5-11.1); MONO % 8.4 % (3.8-10.2); NEUT % 56.7 % (42.8-82.8); PLATELET COUNT 311 K/MM3 (134-434); RDW 16.8 % (11.9-15.9); WHITE BLOOD COUNT 6.4 K/mm3 (4.0-10.0)
[2018-09-03 11:25] LABS: MCH 19.6 pg (25.7-33.7)
--- NOTE | 2018-09-03 13:40 | PN ---
S Progress Note (SOAP) Subjective: Patient denies current Withdrawal / Detox symptoms and reports that he feels well overall. Objective: PATIENT A & O X 3, OBSERVED AMBULATING ON UNIT. IN NO ACUTE DISTRESS. 09/03/18 13:36 Vital Signs Temperature 97.7 F 09/03/18 09:36 Pulse Rate 73 09/03/18 09:36 Respiratory Rate 18 09/03/18 09:36 Blood Pressure 132/78 09/03/18 09:36 O2 Sat by Pulse Oximetry (%) Laboratory Tests 08/31/18 09/01/18 09/01/18 18:35 06:30 06:30 WBC RBC Hgb Hct MCV MCH MCHC RDW Plt Count MPV Absolute Neuts (auto) Neutrophils % Lymphocytes % Monocytes % Eosinophils % Basophils % Nucleated RBC % Sodium 141 Potassium 3.5 Chloride 106 Carbon Dioxide 27 Anion Gap 8 BUN 19 H Creatinine 1.2 Creat Clearance w eGFR 68.13 Random Glucose 95 Calcium 8.9 Total Bilirubin 0.3 AST 27 ALT 69 H Alkaline Phosphatase 72 Total Protein 7.3 Albumin 3.8 Urine Color Dk yellow Urine Appearance Turbid Urine pH 5.5 Ur Specific [place] 1.027 Urine Protein 1+ Urine Glucose (UA) Negative Urine Ketones Trace H Urine Blood Negative Urine Nitrite Negative Urine Bilirubin 1+ H Urine Urobilinogen 1.0 Ur Leukocyte Esterase Negative Urine WBC (Auto) 2 Urine RBC (Auto) None seen Urine Casts (Auto) 55 U Epithel Cells (Auto) 2.9 Urine Bacteria (Auto) 1.008 RPR Titer Nonreactive 09/01/18 09/03/18 09:00 09:00 WBC 10.8 H 6.4 RBC 5.55 5.80 H Hgb 11.0 L 11.4 L Hct 34.3 L 35.7 MCV 61.7 L 61.6 L MCH 19.8 L 19.6 L MCHC 32.0 31.9 L RDW 17.4 H 16.8 H Plt Count 360 311 MPV 9.2 9.1 Absolute Neuts (auto) 3.7 Neutrophils % 56.7 Lymphocytes % 32.1 Monocytes % 8.4 Eosinophils % 1.6 Basophils % 1.2 Nucleated RBC % 0 Sodium Potassium Chloride Carbon Dioxide Anion Gap BUN Creatinine Creat Clearance w eGFR Random Glucose Calcium Total Bilirubin AST ALT Alkaline Phosphatase Total Protein Albumin Urine Color Urine Appearance Urine pH Ur Specific [place] Urine Protein Urine Glucose (UA) Urine Ketones Urine Blood Urine Nitrite Urine Bilirubin Urine Urobilinogen Ur Leukocyte Esterase Urine WBC (Auto) Urine RBC (Auto) Urine Casts (Auto) U Epithel Cells (Auto) Urine Bacteria (Auto) RPR Titer LABS NOTED. RESULTS OF REPEAT CBC NOTED. WBC LEVEL NOW NOTED TO BE WITHIN NORMAL RANGE. MILD INCREASE NOTED IN HGB AND HCT LEVELS. PATIENT MADE AWARE. 09/03/18 13:38 Assessment: 09/03/18 13:39 WITHDRAWAL SYMPTOMS. Plan: CONTINUE DETOX. INCREASE DAILY PO FLUID INTAKE. PATIENT SCHEDULED FOR D/C TOMORROW.
[2018-09-03 15:01] LABS: ANISOCYTOSIS 1+; MACROCYTOSIS 0; PLATELET ESTIMATE NORMAL
[2018-09-03 17:28] VITALS: BP 112/69; PULSE 78; TEMP 98.8
--- NOTE | 2018-09-03 17:55 | PN ---
[facility] Progress Note Note: NOTIFIED BY NURSING STAFF PATIENT REQUESTED TO SIGN OUT AMA. PATIENT SEEN BY COMPUTER PROCESSING SCHEDULER AND STATED " I AM FEELING FINE RIGHT NOW. I WILL COME BACK TO REHAB NEXT WEEK". PATIENT EXPLAINED RISK FACTORS OF AND RELAPSE WITH SIGNING OUT AMA BUT REFUSED TO STAY. PATIENT TOLD PROVIDER " I AM NOT GOING TO USE, I JUST NEED TO LEAVE TODAY. THIS PLACE HAS BEEN GREAT!. THANK YOU." PATIENT ENCOURAGE TO CONTINUE WITH REHAB TREATMENT AND GROUP MEETINGS TO PREVENT RELAPSE AND TO FOLLOW UP WITH PCP RECOMMENDED TO CONTINUE MEDICAL TREATMENT. Vital Signs Temperature 98.8 F 09/03/18 17:28 Pulse Rate 78 09/03/18 17:28 Respiratory Rate 18 09/03/18 17:28 Blood Pressure 112/69 09/03/18 17:28 O2 Sat by Pulse Oximetry (%)
--- NOTE | 2018-09-03 17:56 | DS ---
[facility] Detox Discharge Summary Admission Date: 08/31/18 Discharge Date: 09/03/18 - History Present History: Cocaine Dependence, Opioid Dependence - Physical Exam Results Vital Signs: Vital Signs Temperature 98.8 F 09/03/18 17:28 Pulse Rate 78 09/03/18 17:28 Respiratory Rate 18 09/03/18 17:28 Blood Pressure 112/69 09/03/18 17:28 O2 Sat by Pulse Oximetry (%) - Medication Discharge Medications: Ambulatory Orders NK [No Known Home Medication] 07/15/18 - AMA Did Patient Leave Against Medical Advice: Yes
[2018-09-04] MEDS ORDERED: METHADONE HCL 5 MG TABLET (FOR DETOX USE ONLY) PO ONE (06:00)
== END 2018-09-03 17:50 | disposition left against medical advice (07) | DRG 770 ==
LOC: YASAS 10:26 → Y3N 13:54
PROVIDERS: ADMIT Surgery; ATTEND Surgery
PROC: HZ2ZZZZ Detoxification Services for Substance Abuse Treatment (ICD-10-PCS; principal; 2018-08-31)
DX: F11.23 Opioid dependence with withdrawal (principal); F14.20 Cocaine dependence, uncomplicated; F17.210 Nicotine dependence, cigarettes, uncomplicated; D50.9 Iron deficiency anemia, unspecified; D72.829 Elevated white blood cell count, unspecified; R63.4 Abnormal weight loss; Z68.22 Body mass index [BMI] 22.0-22.9, adult
CPT/HCPCS: 36415; 80053; 81003; 85025; 85027; 86593; J0735

== ENCOUNTER 2018-09-27 11:35 | Inpatient (IN) | payer OTHER ==
[2018-09-27 19:58] VITALS: BMI 23.7
--- NOTE | 2018-09-27 20:28 | HP ---
CIWA Score - Admission Criteria [facility] Guidelines: Admission for Medically Managed Detox: Requires at least one of the followin. CIWA greater than 12 2. Seizures within the past 24 hours 3. Delirium tremens within the past 24 hours 4. Hallucinations within the past 24 hours 5. Acute intervention needed for co occurring medical disorder 6. Acute intervention needed for co occurring psychiatric disorder 7. Severe withdrawal that cannot be handled at a lower level of care (continued vomiting, continued diarrhea, abnormal vital signs) requiring intravenous medication and/or fluids 8. Admission ROS [facility] - HPI Chief Complaint: opioid and cocaine rehabilitation Allergies/Adverse Reactions: Allergies Allergy/AdvReac Type Severity Reaction Status Date / Time No Known Allergies Allergy Verified 08/31/18 11:18 History of Present Illness: his 38 years old male with heroin (IV), nicotine and cocaine dependence presents today requesting admission to rehab, patient is known to the program, self referred. reports completed opioid detox on 09/25/18 at [facility]. Longest period of sobriety eight months while on vivitrol, but relapsed. PMHX: weight loss Denies psych hx Denies SI/HI Denies hx of seizures, blackouts or overdose Exam Limitations: No Limitations - Ebola screening Have you traveled outside of the country in the last 21 days: No (N) Have you had contact with anyone from an Ebola affected area: No Do you have a fever: No - Review of Systems Constitutional: Unintentional Wgt. Loss EENT: reports: No Symptoms Reported Respiratory: reports: No Symptoms reported Cardiac: reports: No Symptoms Reported GI: reports: No Symptoms Reported : reports: No Symptoms Reported Musculoskeletal: reports: No Symptoms Reported Integumentary: reports: No Symptoms Reported Neuro: reports: No Symptoms reported Endocrine: reports: No Symptoms Reported Hematology: reports: No Symptoms Reported Psychiatric: reports: Orientated x3, Anxious Other Systems: Reviewed and Negative Patient History - Patient Medical History Hx Anemia: No Hx Asthma: No Hx Chronic Obstructive Pulmonary Disease (COPD): No Hx Cancer: No Hx Cardiac Disorders: No Hx Congestive Heart Failure: No Hx Hypertension: No Hx Hypercholesterolemia: No Hx Pacemaker: No HX Cerebrovascular Accident: No Hx Seizures: No Hx Dementia: No Hx Diabetes: No Hx Gastrointestinal Disorders: No Hx Liver Disease: No Hx Genitourinary Disorders: No Hx Sexually Transmitted Disorders: No Hx Renal Disease (ESRD): No Hx Thyroid Disease: No Hx Human Immunodeficiency Virus (HIV): No (last 07/15/18 negative) Hx Hepatitis C: No Hx Depression: No Hx Suicide Attempt: No Hx Bipolar Disorder: No Hx Schizophrenia: No - Patient Surgical History Past Surgical History: No - PPD History Documented Results: Negative w/proof Date: 07/17/18 Results: 0 mm PPD to be Administered?: No - Smoking Cessation Smoking history: Current every day smoker Have you smoked in the past 12 months: Yes Aproximately how many cigarettes per day: 20 Cigars Per Day: 20 Hx Chewing Tobacco Use: No Initiated information on smoking cessation: Yes 'Breaking Loose' booklet given: 09/27/18 - Substance & Tx. History Hx Alcohol Use: No Hx Substance Use: Yes Substance Use Type: Cocaine, Heroin, Opiates Hx Substance Use Treatment: Yes (Completed detox at [facility] 09/25/18) - Substances abused Heroin Substance route: Injection Frequency: Daily Amount used: 20 bags Age of first use: 34 Date of last use: 09/22/18 Cocaine Substance route: Inhalation Frequency: Daily Amount used: $40 worth Age of first use: 34 Date of last use: 09/22/18 Family Disease History - Family Disease History Family History: Denies Admission Physical Exam BHS - Vital Signs Vital Signs: Vital Signs - 24 hr 09/27/18 09/27/18 09/27/18 19:56 20:17 20:23 Temperature 98.5 F 98.5 F 98.5 F Pulse Rate 91 H 91 H 91 H Respiratory 18 18 18 Rate Blood Pressure 123/70 123/70 123/70 - Physical General Appearance: Yes: Thin, Anxious HEENTM: Yes: EOMI, Hearing grossly Normal, Normal ENT Inspection, Normocephalic , Normal Voice, Pharynx Normal, Tm's normal, Other (cheilitis) Respiratory: Yes: Within Normal Limits, Chest Non-Tender, Lungs Clear, Normal Breath Sounds, No Respiratory Distress, No Accessory Muscle Use Neck: Yes: Within Normal Limits Breast: Yes: Breast Exam Deferred Cardiology: Yes: Regular Rhythm, Regular Rate Abdominal: Yes: Normal Bowel Sounds, Non Tender, Flat, Soft Genitourinary: Yes: Within Normal Limits Back: Yes: Normal Inspection Musculoskeletal: Yes: full range of Motion, Gait Steady, Pelvis Stable Extremities: Yes: Normal Capillary Refill, Normal Inspection, Normal Range of Motion, Non-Tender Neurological: Yes: full time babysitter II-XII NML intact, Fully Oriented, Alert, Motor Strength 5/5, Normal Mood/Affect (anxious), Depressed Affect Integumentary: Yes: Normal Color, Warm, Track Ortega (bilateral aniticubital fossa, no infection present) Lymphatic: Yes: Within Normal Limits - Diagnostic (1) Nicotine dependence Current Visit: Yes Status: Acute Qualifiers: Nicotine product type: cigarettes Substance use status: uncomplicated Qualified Code(s): F17.210 - Nicotine dependence, cigarettes, uncomplicated (2) Opioid dependence, uncomplicated Current Visit: Yes Status: Acute (3) Cocaine dependence Current Visit: Yes Status: Acute Qualifiers: Substance use status: uncomplicated Qualified Code(s): F14.20 - Cocaine dependence, uncomplicated (4) IVDU (intravenous drug user) Current Visit: Yes Status: Acute (5) Weight loss Current Visit: Yes Status: Acute Breathalyzer - Breathalyzer Breathalyzer: 0 POC Urine test - Control test control: No Urine Drug Screen - Test Device Lot number: [id number] Expiration date: 05/13/20 - Control Is test valid?: Yes - Results Drug screen NEGATIVE: No Urine drug screen results: KAMLESH-Cocaine, FEN-Fentanyl, MOP-Opiates, MTD-Methadone Inpatient Rehab Admission - Rehab Decision to Admit Inpatient rehab admission?: Yes - Initial Determination Are CD services needed?: Yes Free of communicable disease: Yes Not in need of hospitalization: Yes - Rehab Admission Criteria Previous failed treatment: Yes Poor recovery environment: Yes Comorbidities: Yes Lacks judgement: Yes Patient is meeting Inpatient Rehab admission criteria:: Yes
[2018-09-27] MEDS ORDERED: MENTHOL/PHENOL 1 EACH UD MM PRN (20:39)
[2018-09-27] MEDS ORDERED: P-EPHED 60MG/TRIPROLIDI 2.5MG TABLET PO PRN (20:39)
[2018-09-27] MEDS ORDERED: ACETAMINOPHEN 325 MG TABLET (FP) PO PRN (20:39)
[2018-09-27] MEDS ORDERED: MAGNESIUM CITRATE 300 ML BOTTLE PO PRN (20:39)
[2018-09-27] MEDS ORDERED: MAG HYDROX/AL HYDROX/SIMETH 30 ML UNIT-DOSE CUP PO PRN (20:39)
[2018-09-27] MEDS ORDERED: MAGNESIUM HYDROX 2400MG/30ML ORAL SUSPENSION 30 ML CUP PO PRN (20:39)
[2018-09-27] MEDS ORDERED: LOPERAMIDE HCL 2 MG CAPSULE PO PRN (20:39)
[2018-09-27] MEDS ORDERED: guaiFENesin 200 MG/10 ML 10 ML UNIT-DOSE CUPS PO PRN (20:39)
[2018-09-27] MEDS ORDERED: IBUPROFEN 400 MG TABLET (FP) PO PRN (20:39)
[2018-09-27] MEDS ORDERED: hydrOXYzine PAMOATE 25 MG CAPSULE (FP) PO PRN (20:39)
[2018-09-27] MEDS ORDERED: NICOTINE POLACRILEX 2 MG GUM BC PRN (20:39)
[2018-09-27] MEDS ORDERED: MELATONIN 5 MG TABLETS PO PRN (22:00)
[2018-09-27] MEDS: THIAMINE HCL 100 MG TABLET (FP) PO SCH (22:13)
[2018-09-28 08:42] LABS: URINE APPEARANCE TURBID; URINE BILIRUBIN NEGATIVE (NEGATIVE); URINE COLOR YELLOW; URINE GLUCOSE (UA) NEGATIVE (NEGATIVE); URINE KETONE NEGATIVE (NEGATIVE); URINE LEUK ESTERASE NEGATIVE (NEGATIVE); URINE NITRITE NEGATIVE (NEGATIVE); URINE PROTEIN NEGATIVE (NEGATIVE); URINE UROBILINOGEN 0.2 mg/dL (0.2-1.0)
[2018-09-28] MEDS: PRENATAL VITAMINS W/ FOLIC ACID TABLET (FP) PO SCH (10:14)
[2018-09-28] MEDS: NICOTINE 21 MG/24 HOURS TOPICAL PATCH TD SCH (10:14)
[2018-09-28 12:57] LABS: ALBUMIN 3.2 g/dl (3.4-5.0); ALK PHOS 116 U/L (45-117); ANION GAP 5 MMOL/L (8-16); BILIRUBIN,TOTAL 0.4 mg/dL (0.2-1); BLOOD UREA NITROGEN 27 mg/dL (7-18); CALCIUM 8.4 mg/dL (8.5-10.1); CHLORIDE 103 mmol/L (98-107); CO2 28 mmol/L (21-32); CREATININE 0.8 mg/dL (0.55-1.3); GLUCOSE,RANDOM 99 mg/dL (74-106); SGOT/AST 256 U/L (15-37); SGPT/ALT 451 U/L (13-61); SODIUM 136 mmol/L (136-145); TOT PROT 6.3 g/dl (6.4-8.2)
--- NOTE | 2018-09-28 13:27 | PN ---
S Progress Note Note: Elevated liver enzymes. Has previous hx of the same. Asymptomatic; possibly related to substance use. Laboratory Last Values Sodium 136 mmol/L (136-145) 09/28/18 08:55 Potassium 4.0 mmol/L (3.5-5.1) 09/28/18 08:55 Chloride 103 mmol/L (98-107) 09/28/18 08:55 Carbon Dioxide 28 mmol/L (21-32) 09/28/18 08:55 Anion Gap 5 MMOL/L (8-16) L 09/28/18 08:55 BUN 27 mg/dL (7-18) H 09/28/18 08:55 Creatinine 0.8 mg/dL (0.55-1.3) 09/28/18 08:55 Creat Clearance w eGFR 108.77 (>60) 09/28/18 08:55 Random Glucose 99 mg/dL (74-106) 09/28/18 08:55 Calcium 8.4 mg/dL (8.5-10.1) L 09/28/18 08:55 Total Bilirubin 0.4 mg/dL (0.2-1) 09/28/18 08:55 AST 256 U/L (15-37) H 09/28/18 08:55 ALT 451 U/L (13-61) H 09/28/18 08:55 Alkaline Phosphatase 116 U/L (45-117) 09/28/18 08:55 Total Protein 6.3 g/dl (6.4-8.2) L 09/28/18 08:55 Albumin 3.2 g/dl (3.4-5.0) L 09/28/18 08:55 Urine Color Yellow 09/28/18 00:00 Urine Appearance Turbid 09/28/18 00:00 Urine pH 5.0 (5.0-8.0) 09/28/18 00:00 Ur Specific [place] 1.023 (1.010-1.035) 09/28/18 00:00 Urine Protein Negative (NEGATIVE) 09/28/18 00:00 Urine Glucose (UA) Negative (NEGATIVE) 09/28/18 00:00 Urine Ketones Negative (NEGATIVE) 09/28/18 00:00 Urine Blood Negative (NEGATIVE) 09/28/18 00:00 Urine Nitrite Negative (NEGATIVE) 09/28/18 00:00 Urine Bilirubin Negative (NEGATIVE) 09/28/18 00:00 Urine Urobilinogen 0.2 mg/dL (0.2-1.0) 09/28/18 00:00 Ur Leukocyte Esterase Negative (NEGATIVE) 09/28/18 00:00
[2018-09-28 13:28] LABS: HEMATOCRIT 33.2 % (35.4-49); HEMOGLOBIN 10.3 GM/dL (11.7-16.9); MCHC 31.1 g/dl (32.0-35.9); MEAN CELL VOLUME 61.8 fl (80-96); MEAN PLT VOLUME 9.1 fl (7.5-11.1); PLATELET COUNT 280 K/MM3 (134-434); RBC 5.36 M/mm3 (4.00-5.60); RDW 17.4 % (11.9-15.9); WHITE BLOOD COUNT 7.1 K/mm3 (4.0-10.0)
[2018-09-28 13:31] LABS: MCH 19.2 pg (25.7-33.7)
[2018-09-28] MEDS: THIAMINE HCL 100 MG TABLET (FP) PO SCH (21:37)
[2018-09-29 06:50] VITALS: TEMP 97.9
[2018-09-29] MEDS: NICOTINE 21 MG/24 HOURS TOPICAL PATCH TD SCH (10:17)
[2018-09-29] MEDS: PRENATAL VITAMINS W/ FOLIC ACID TABLET (FP) PO SCH (10:17)
[2018-09-29 15:01] VITALS: BP 133/66; PULSE 97
--- NOTE | 2018-09-29 15:27 | PN ---
S Progress Note Note: Patient requesting clonidine. BP is 133/66; states he is in withdrawal, feeling anxious. When asked if he tried vistaril, he said no, that it does not do anything for him. Advised patient that I would give him a one time dose now. Client refused the clonidine at that time. Will continue to monitor.
[2018-09-29] MEDS: THIAMINE HCL 100 MG TABLET (FP) PO SCH (21:54)
[2018-09-29] MEDS ORDERED: CYCLOBENZAPRINE HCL 5 MG TABLET PO ONE (22:15)
[2018-09-30] MEDS: NICOTINE 21 MG/24 HOURS TOPICAL PATCH TD SCH (10:08)
[2018-09-30] MEDS: PRENATAL VITAMINS W/ FOLIC ACID TABLET (FP) PO SCH (10:09)
--- NOTE | 2018-09-30 13:41 | PN ---
[facility] Progress Note Note: Notified by RN patient states he wants to sign out AMA. Automobile Rental Clerk spoke with patient and he stated " I want to leave and smoke". Patient encouraged to stay and complete treatment and explained risk factors of relapse with signing out AMA. Patient refused to stay in treatment and stated he will follow up with his provider in psychiatric hospital, Dr. Horton for continued medical management. Patient is medically stable and denies SI/HI. Patient encouraged to follow up with provider within 72 hours of discharge. Patient states he has Narcan kit at home. Ambulatory Orders NK [No Known Home Medication] 07/15/18 Ambulatory Orders NK [No Known Home Medication] 07/15/18 Vital Signs Temperature 97.9 F 09/29/18 06:49 Pulse Rate 97 H 09/29/18 15:01 Respiratory Rate 18 09/30/18 07:53 Blood Pressure 133/66 09/29/18 15:01 O2 Sat by Pulse Oximetry (%) Laboratory Tests 09/28/18 09/28/18 09/28/18 00:00 08:55 08:55 WBC 7.1 RBC 5.36 Hgb 10.3 L Hct 33.2 L MCV 61.8 L MCH 19.2 L MCHC 31.1 L RDW 17.4 H Plt Count 280 MPV 9.1 Sodium 136 Potassium 4.0 Chloride 103 Carbon Dioxide 28 Anion Gap 5 L BUN 27 H Creatinine 0.8 Creat Clearance w eGFR 108.77 Random Glucose 99 Calcium 8.4 L Total Bilirubin 0.4 AST 256 H ALT 451 H Alkaline Phosphatase 116 Total Protein 6.3 L Albumin 3.2 L Urine Color Yellow Urine Appearance Turbid Urine pH 5.0 Ur Specific [place] 1.023 Urine Protein Negative Urine Glucose (UA) Negative Urine Ketones Negative Urine Blood Negative Urine Nitrite Negative Urine Bilirubin Negative Urine Urobilinogen 0.2 Ur Leukocyte Esterase Negative RPR Titer 09/28/18 08:55 WBC RBC Hgb Hct MCV MCH MCHC RDW Plt Count MPV Sodium Potassium Chloride Carbon Dioxide Anion Gap BUN Creatinine Creat Clearance w eGFR Random Glucose Calcium Total Bilirubin AST ALT Alkaline Phosphatase Total Protein Albumin Urine Color Urine Appearance Urine pH Ur Specific [place] Urine Protein Urine Glucose (UA) Urine Ketones Urine Blood Urine Nitrite Urine Bilirubin Urine Urobilinogen Ur Leukocyte Esterase RPR Titer Nonreactive
== END 2018-09-30 12:30 | disposition left against medical advice (07) | DRG 770 ==
LOC: YASAS 11:35 → Y3W 20:34
PROVIDERS: ADMIT Neuromusculoskeletal Medicine & OMM; ATTEND Neuromusculoskeletal Medicine & OMM
PROC: HZ42ZZZ Group Counseling for Substance Abuse Treatment, Cognitive-Behavioral (ICD-10-PCS; principal; 2018-09-27)
DX: F11.20 Opioid dependence, uncomplicated (principal); F14.20 Cocaine dependence, uncomplicated; F17.210 Nicotine dependence, cigarettes, uncomplicated; R94.5 Abnormal results of liver function studies; R63.4 Abnormal weight loss
CPT/HCPCS: 36415; 80053; 81003; 85027; 86593